=== PATIENT | female | born 1980 | race African-American/Black ===

== ENCOUNTER 2017-03-29 08:30 | Inpatient (IN) | payer OTHER ==
[2017-03-29] MEDS ORDERED: CITRIC ACID/SODIUM CITRATE 30 ML UNIT-DOSE CUP PO ONE (10:00)
[2017-03-29] MEDS ORDERED: ELECTROLYTE-148 SOLN 500 ML IV SCH ×2 (10:00→10:30)
[2017-03-29 10:47] VITALS: BMI 40.3
[2017-03-29] MEDS ORDERED: morphine SULFATE/Preservative Free 0.5 MG/ML (1cc Syringe) EP ONE (10:48)
[2017-03-29] MEDS ORDERED: ONDANSETRON 4 MG/2 ML VIAL IVPB PRN (10:48)
[2017-03-29] MEDS ORDERED: TUBERCULIN PPD 5 TU/0.1ML SYRINGE (IN PATIENT USE ONLY) ID ONE (11:30)
[2017-03-29 12:23] LABS: ARTERIAL BLOOD GAS BASE EXCESS -19.2 meq/l (-2-2); ARTERIAL BLOOD GAS HCO3 18.1 meq/L (22-26); ARTERIAL BLOOD GAS PO2 17.9 mmHg (80-100)
[2017-03-29 12:24] LABS: ART PUNCT SITE OTHER; ARTERIAL BLOOD GAS pH 6.94 (7.35-7.45); LPM/O2% 21%; PT. ON O2? NO; TYPE OF O2 R/A
[2017-03-29 12:28] LABS: VENOUS PH 6.98 (7.32-7.42)
[2017-03-29 12:29] LABS: VENOUS BLOOD GAS HCO3 19.4 meq/L (19-25)
[2017-03-29] MEDS: OXYTOCIN 20 UNITS in 0.9% NS 1,000 ML IV SCH ×2 (13:15→22:58)
--- NOTE | 2017-03-29 13:41 | HP ---
Past Medical History - Admission Chief Complaint: previous section antepartum course was unremarkable, she has a h/o previous section and due to a h/o multiparity she is also scheduled for bilateral tubal ligation. History of Present Illness: 47 y/o fe ma;e presented to labor and delivery v/o ondst of ladria, on evaluation she wa as found to havw uterinr vontraction everi 3 to 4 minutres teaving was teactive she was subsequently abmittrd stefanie barrera History Source: Patient Limitations to Obtaining History: No Limitations - Past Medical History ...: 6 ...Para: 2 ...Term: 2 ...: 0 ...Spon : 0 ...Induced : 3 ...Multiple Gestation: 0 ...LMP: 06/30/16 ...EDC by Sono: 04/06/17 Heme/Onc: No: Anemia, B12 Deficiency, Bleeding Disorder, Cancer, Current Chemotherapy, Current Radiation Therapy, Hemochromatosis, Hypercoaguable State, Myeloproliferative Synd, Sickle Cell Disease, Sickle Cell Trait, Thrombocytopenia, Other Infectious Disease: No: AIDS, C-Diff, Herpes Zoster, HIV, MRSA, STD's, Tuberculosis, VREF, Other Psych: No: Addictions, Anxiety, Bipolar, Depression, Panic, Psychosis, Schizophrenia, Other Musculoskeletal: No: Bursitis, Chronic low back pain, Hemiparesis, Hemiplegia, Osteoarthritis, Paraplegia, Other Rheumatology: No: Fibromyalgia, Gout, Lupus, Rheumatoid Arthritis, Sarcoidosis, Vasculitis, Other ENT: No: Allergic Rhinitis, Sinusitis, Other Endocrine: No: Clifford's Disease, Bellmore's Disease, Diabetes Insipidus, Diabetes Mellitus, Hyperparathyroidism, Hyperthyroidism, Hypothyroidism, Osteopenia, SIADH, Other Dermatology: No: Basal Cell, Cellulitis, Eczema, Melanoma, Psoriasis, Squamous Cell, Other - Past Surgical History Past Surgical History: Yes: Hx Myomectomy: No Hx Transabdominal Cerclage: No - Smoking History Smoking history: Never smoked Have you smoked in the past 12 months: No - Alcohol/Substance Use Hx Alcohol Use: No - Social History History of Recent Travel: No Home Medications - Allergies Allergies/Adverse Reactions: Allergies Allergy/AdvReac Type Severity Reaction Status Date / Time No Known Allergies Allergy Verified 03/29/17 10:26 - Home Medications Home Medications: Ambulatory Orders Vits #93/Iron Fum/FA [ Formula Tablet] 1 each PO DAILY Review of Systems - Review of Systems Constitutional: reports: No Symptoms Eyes: reports: No Symptoms HENT: reports: No Symptoms Neck: reports: No Symptoms Cardiovascular: reports: No Symptoms Respiratory: reports: No Symptoms Gastrointestinal: reports: No Symptoms Genitourinary: reports: No Symptoms Breasts: reports: No Symptoms Reported Musculoskeletal: reports: No Symptoms Integumentary: reports: No Symptoms Neurological: reports: No Symptoms Endocrine: reports: No Symptoms Hematology/Lymphatic: reports: No Symptoms Psychiatric: reports: No Symptoms Physical Exam - Maternity Vital Signs: Vital Signs Temperature 98.2 F 03/29/17 10:30 Pulse Rate 100 H 03/29/17 10:30 Respiratory Rate 18 03/29/17 10:30 Blood Pressure 110/75 03/29/17 10:30 O2 Sat by Pulse Oximetry (%) Constitutional: Yes: Well Nourished, No Distress, Calm Eyes: Yes: WNL HENT: Yes: WNL Neck: Yes: WNL Cardiovascular: Yes: WNL, Regular Rate and Rhythm Lungs: Clear to auscultation Breast(s): Yes: WNL - Abdominal Exam/OB Number of Fetuses: Single Presentation: Vertex Contractions: Yes Regularity: Regular Intensity: Moderate Monitor Mode: External Heart Rate (range): 140 BPM Heart Rate Location: [facility] Category: I Accelerations: Uniform Decelerations: None - Vaginal Exam/OB Vaginal Bleediing: No Speculum Exam: No - Physical Exam Musculoskeletal: Yes: WNL Extremities: Yes: WNL Edema: No Integumentary: Yes: WNL Deep Tendon Reflex Grade: Normal +2 ...Motor Strength: WNL Psychiatric: Yes: Alert, Oriented Assessment/Plan IUP at term in labor previous c-sectiom multiparity plan: repeat bilateral tubal ligation
[2017-03-29] MEDS ORDERED: METHYLERGONOVINE MALEATE 0.2 MG/1 ML AMP IM PRN (14:36)
[2017-03-29] MEDS ORDERED: IBUPROFEN 600 MG TABLET (FP) PO PRN (14:36)
[2017-03-29 15:03] LABS: URINE MARIJUANA THC NEGATIVE ng/ml (CUTOFF=50)
--- NOTE | 2017-03-29 15:10 | OP ---
Operative Note - Note: Operative Date: 03/29/17 Pre-Operative Diagnosis: IUP at term, previous , in labor Operation: repeat , bilateral tubal ligation Findings: living female infant score 6/8, normal appearing tubes and ovaries Post-Operative Diagnosis: Same as Pre-op Surgeon: Stephie Jack Information Systems Security Manager: Rose Garrett Anesthesia: Spinal Specimens Removed: placenta Drains & Tubes with Location: humphreys to gravity Operative Report Dictated: Yes
--- NOTE | 2017-03-30 05:37 | PN ---
Post Progress Note - Subjective Subjective: 36 yo Para 3 status post repeat , seen and evaluated. Doing well. Type of Delivery: Repeat C/S Vital Signs: Vital Signs Temperature 99.2 F 03/30/17 05:00 Pulse Rate 94 H 03/30/17 05:00 Respiratory Rate 19 03/30/17 05:00 Blood Pressure 116/65 03/30/17 05:00 O2 Sat by Pulse Oximetry (%) 99 03/29/17 14:00 Breast Exam: Yes: Soft Uterus: Yes: Fundus Firm Incision: Yes: Dressing dry and intact Abdomen/GI: Yes: Abdomen soft Lochia: Yes: Rubra Lochia, amount: Small Extremities: Yes: Calves non-tender Perineum: Yes: Intact Activity: Other (She's lying in bed) Problem List - Problems (1) Status post repeat low transverse section Code(s): Z98.891 - HISTORY OF UTERINE SCAR FROM PREVIOUS SURGERY Assessment/Plan Status post repeat Ambulation Analgesia as needed Continue post op care
[2017-03-30] MEDS: OXYTOCIN 20 UNITS in 0.9% NS 1,000 ML IV SCH (06:29)
[2017-03-30 07:42] LABS: BASOPHIL 0.4 % (0-2.0); EOSINOPHIL 0.6 % (0-4.5); MCHC 32.7 g/dl (32.0-36.0); MEAN CELL VOLUME 79.5 fl (80-96); NEUTROPHILS 79.1 % (42.8-82.8); PLATELET COUNT 144 K/MM3 (134-434)
[2017-03-30] MEDS: PRENATAL VITAMINS W/ FOLIC ACID TABLET (FP) PO SCH (10:19)
[2017-03-30] MEDS ORDERED: BISACODYL 10 MG SUPP.RECT RC PRN (14:40)
[2017-03-30] MEDS: IBUPROFEN 600 MG TABLET (FP) PO PRN (15:48)
[2017-03-30] MEDS: ACETAMINOPHEN 325 MG TABLET (FP) PO PRN (15:49)
[2017-03-30] MEDS: SIMETHICONE 80 MG TAB.CHEW (FP) PO PRN (15:50)
[2017-03-31] MEDS: IBUPROFEN 600 MG TABLET (FP) PO PRN ×5 (03:44→22:25)
[2017-03-31] MEDS: ACETAMINOPHEN 325 MG TABLET (FP) PO PRN ×5 (03:45→22:25)
--- NOTE | 2017-03-31 07:41 | PN ---
Progress Note, Physician Chief Complaint: S/P C SECTION UNDER SPINAL ANESTHESIA WITH DURAMORPH History of Present Illness: POST OP DAY 2 - Current Medication List Current Medications: Active Medications Acetaminophen (Tylenol -) 650 mg PO Q4H PRN PRN Reason: FEVER OR PAIN Last Admin: 03/31/17 03:45 Dose: 650 mg Bisacodyl (Dulcolax Suppository -) 10 mg RC PRN PRN PRN Reason: CONSTIPATION Ibuprofen (Motrin -) 600 mg PO Q4H PRN PRN Reason: PAIN Last Admin: 03/31/17 03:44 Dose: 600 mg Methylergonovine Maleate (Methergine Injection -) 0.2 mg IM Q4H PRN PRN Reason: Excessive Bleeding (L&D) Multivit/Folic Acid/Iron ( Vitamins (Sjr) -) 1 tab PO DAILY CJ Last Admin: 03/30/17 10:19 Dose: Not Given Simethicone (Mylicon -) 80 mg PO Q4H PRN PRN Reason: GAS Last Admin: 03/30/17 15:50 Dose: 80 mg - Objective Vital Signs: Vital Signs Temperature 98.5 F 03/30/17 21:04 Pulse Rate 100 H 03/30/17 21:04 Respiratory Rate 20 03/30/17 21:04 Blood Pressure 105/52 03/30/17 21:04 O2 Sat by Pulse Oximetry (%) 99 03/29/17 14:00 Constitutional: Yes: Well Nourished Cardiovascular: Yes: WNL Respiratory: Yes: WNL Gastrointestinal: Yes: WNL Neurological: Yes: WNL Labs: CBC, BMP 03/30/17 06:20 Assessment/Plan PAIN CONTROLLED WITH ORAL ANALGESICS, NO ITCHING, HEADACHE, BACKACHE, NAUSEA OR VOMITING. NO QUESTIONS ABOUT ANESTHETIC, DEPT OF ANESTHESIA WILL SIGN OFF CARE AT THIS TIME
[2017-03-31] MEDS: SIMETHICONE 80 MG TAB.CHEW (FP) PO PRN ×4 (08:30→22:24)
[2017-03-31] MEDS: PRENATAL VITAMINS W/ FOLIC ACID TABLET (FP) PO SCH (11:44)
[2017-04-01] MEDS: ACETAMINOPHEN 325 MG TABLET (FP) PO PRN ×2 (05:16→10:26)
[2017-04-01] MEDS: IBUPROFEN 600 MG TABLET (FP) PO PRN ×2 (05:17→10:27)
[2017-04-01] MEDS: SIMETHICONE 80 MG TAB.CHEW (FP) PO PRN ×2 (05:18→10:26)
[2017-04-01 07:00] LABS: BASOPHIL 0.4 % (0-2.0); EOSINOPHIL 4.4 % (0-4.5); MCH 25.9 pg (25.7-33.7); MCHC 32.4 g/dl (32.0-36.0); MEAN PLT VOLUME 8.5 fl (7.5-11.1); NEUTROPHILS 62.9 % (42.8-82.8); PLATELET COUNT 203 K/MM3 (134-434); RDW 16.5 % (11.6-15.6); WHITE BLOOD COUNT 8.6 K/mm3 (4.0-10.0)
--- NOTE | 2017-04-01 08:40 | PN ---
Progress Note (SOAP) - Subjective Chief Complaint: Pt doing well - Current Medications Current Medications: Active Medications Acetaminophen (Tylenol -) 650 mg PO Q4H PRN PRN Reason: FEVER OR PAIN Last Admin: 04/01/17 05:16 Dose: 650 mg Bisacodyl (Dulcolax Suppository -) 10 mg RC PRN PRN PRN Reason: CONSTIPATION Ibuprofen (Motrin -) 600 mg PO Q4H PRN PRN Reason: PAIN Last Admin: 04/01/17 05:17 Dose: 600 mg Methylergonovine Maleate (Methergine Injection -) 0.2 mg IM Q4H PRN PRN Reason: Excessive Bleeding (L&D) Multivit/Folic Acid/Iron ( Vitamins (Sjr) -) 1 tab PO DAILY CJ Last Admin: 03/31/17 11:44 Dose: 1 tab Simethicone (Mylicon -) 80 mg PO Q4H PRN PRN Reason: GAS Last Admin: 04/01/17 05:18 Dose: 80 mg - Objective Vital Signs: Vital Signs Temperature 98.3 F 03/31/17 21:24 Pulse Rate 94 H 03/31/17 21:24 Respiratory Rate 20 03/31/17 21:24 Blood Pressure 129/51 03/31/17 21:24 O2 Sat by Pulse Oximetry (%) 98 03/31/17 09:00 Constitutional: Yes: Well Nourished, No Distress Respiratory: Yes: WNL, Regular, CTA Bilaterally Gastrointestinal: Yes: WNL, Normal Bowel Sounds, Soft Breast(s): Yes: WNL Musculoskeletal: Yes: WNL Extremities: Yes: WNL Peripheral Pulses WNL: No Edema: No Wound/Incision: Yes: Clean/Dry, Well Approximated, Means Intact Labs Lab Results: CBC, BMP 04/01/17 06:25 Assessment/Plan SP CS POD 3 stable Plan DC home rto 1 week
[2017-04-01] MEDS: PRENATAL VITAMINS W/ FOLIC ACID TABLET (FP) PO SCH (10:26)
[2017-04-01 11:15] VITALS: BP 127/66; PULSE 85; TEMP 97.9
--- NOTE | 2017-04-01 14:15 | PATH ---
Surgical Pathology Report Patient Name: DAVION MARX [facility]. Rec. 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 PLACENTA, DELIVERY: FOCALLY DISRUPTED THIRD TRIMESTER PLACENTA WITH MILD INCREASE IN PREVILLOUS, PERIVILLOUS, AND PRECHORIONIC FIBRIN DEPOSITION, THREE VESSEL UMBILICAL CORD, AND UNREMARKABLE PLACENTAL MEMBRANES. B. PORTION OF FALLOPIAN TUBE, LEFT, LIGATION: SEGMENT OF FALLOPIAN TUBE WITH COMPLETE CROSS SECTION. C. PORTION OF FALLOPIAN TUBE, RIGHT, LIGATION: SEGMENT OF FALLOPIAN TUBE WITH COMPLETE CROSS SECTION. Electronically Signed Jean Paul Juarez M.D. Gross Description A. The specimen is received fresh, labeled "placenta" and is a 640 gram, 18.5 x 15.5 x 2.8 cm placenta with attached membranes and umbilical cord. The attached membranes are blanco translucent and insert marginally. The umbilical cord measures 15 cm in length and averages 0.7 cm in diameter. The cord inserts centrally. No true vocal strictures identified. Cut surface of the umbilical cord reveals three vessels. The surface is amaya-blue with fibrin deposition and appropriate caliber vessels. The maternal surface is red-brown with focal defects. Sectioning reveals red-brown, spongy parenchyma. No focal lesions are identified. [employer] sections are submitted in three cassettes as follows: 1- membrane rolls and umbilical cord; 2-3- full thickness sections of placenta. B. Received in formalin, labeled "portion of left fallopian tube" is a 0.7 cm in length fragment of blanco-purple fallopian tube. The pinpoint lumen is identified. The specimen is sectioned and submitted entirely in one cassette. C. Received in formalin, labeled "portion of right fallopian tube" is a 1.2 cm in length fragment of blanco-purple fallopian tube. The pinpoint lumen is identified. Presented sections are submitted in one cassette. AF/03/31/2017 final/03/31/2017
== END 2017-04-01 13:15 | disposition home or self-care (01) | DRG 766 ==
LOC: JDEL 08:30 → UNDOADMIN 09:45 → JLDR 09:45 → J3W 14:40 → JLDR 15:00 → J3W 15:12
PROVIDERS: ADMIT Obstetrics & Gynecology; ATTEND Obstetrics & Gynecology
PROC: 10D00Z1 Extraction of Products of Conception, Low, Open Approach (ICD-10-PCS; principal; 2017-03-29)
PROC: 0UB70ZZ Excision of Bilateral Fallopian Tubes, Open Approach (ICD-10-PCS; 2017-03-29)
DX: O34.211 Maternal care for low transverse scar from previous cesarean delivery (principal); N85.8 Other specified noninflammatory disorders of uterus; Z3A.38 38 weeks gestation of pregnancy; Z37.0 Single live birth; Z30.2 Encounter for sterilization
CPT/HCPCS: 36415; 36600; 59025; 71020-TC; 80307; 82803; 85025; 88302-TC; 88307-TC